=== PATIENT | male | born 1950 | race Caucasian/White ===

== ENCOUNTER 2018-09-19 07:14 | Day surgery (SDC) | payer MEDICARE ==
[2018-09-19 08:02] VITALS: RESP 19; TEMP 97.3
[2018-09-19] MEDS ORDERED: Lidocaine Hydrochloride 5 ML INJ ONE (08:41)
[2018-09-19] MEDS ORDERED: Propofol 10 mg/ml Inj (20 ML) ONE ×2 (08:41→09:29)
[2018-09-19 09:06] VITALS: PULSE 54; O2SAT 95
[2018-09-19 10:35] VITALS: BP 132/67
== END 2018-09-19 10:35 | disposition home or self-care (01) ==
LOC: C.ENDO 07:14
PROVIDERS: ATTEND Internal Medicine Gastroenterology
DX: Z12.11 Encounter for screening for malignant neoplasm of colon (principal); D12.0 Benign neoplasm of cecum; D12.2 Benign neoplasm of ascending colon; D12.5 Benign neoplasm of sigmoid colon; K57.30 Diverticulosis of large intestine without perforation or abscess without bleeding; K64.1 Second degree hemorrhoids; Z86.010 Personal history of colon polyps
CPT/HCPCS: 45384; 45385; 88305; J2704; J3010